=== PATIENT | female | born 1960 | race Caucasian/White ===

== ENCOUNTER 2017-02-19 15:31 | Emergency (ER) | payer OTHER ==
[~2017-02-19] VITALS: Ht 160 cm; Wt 114.8 kg
[~2017-02-19 15:31] MED LIST: BENA10TA16 PO; EXEM25TA PO; HYDR12.5 PO; IBUP-2213 PO; METO50TA69 PO; SIMV20TA6 PO; [UNRECOGNIZED DRUG - CODE] PO
[2017-02-19 15:57] VITALS: BP 144/91
--- NOTE | 2017-02-19 16:11 | NUR ---
PATIENT TAKEN FOR CXR VIA W/C
--- NOTE | 2017-02-19 19:02 | NUR ---
PATIENT PRESENTS TO ED WITH NAUSEA. MINIMAL CHEST DISCOMFORT WITH INSPIRATION ONLY. Hx: RT. BREAST CANCER X8 YRS.,HTN. DENIES SOB,DENIES INJURY . DENIES N/V/D; SKIN IS PINK/WARM/DRY; AAOX4 WITH EVEN AND STEADY GAIT; LUNGS CLEAR BL; HR EVEN AND REGULAR; PT DENIES ANY FEVER, CP, SOB, OR COUGH AT THIS TIME; PATIENT STATES PAIN OF 10/10 AT THIS TIME; VSS; PATIENT POSITIONED FOR COMFORT; HOB ELEVATED; BEDRAILS UP X2; BED DOWN. ER MD MADE AWARE OF PT STATUS.
--- NOTE | 2017-02-19 19:11 | NUR ---
REPORT GIVEN TO DONTE BARBER FOR CONTINUATION OF CARE
[2017-02-19] MEDS ORDERED: KETOROLAC 30 MG/ML VIAL IM ONE (19:30)
[2017-02-19] MEDS ORDERED: DIAZEPAM 5 MG TAB PO ONE (19:30)
--- NOTE | 2017-02-19 19:30 | NUR ---
PTRESTING IN BED, VSS. AWATING FOR RESULTS, NO S/S OF DISTRESS NOTED AT THIS MOMENT.
[2017-02-19] MEDS ORDERED: KETOROLAC 30 MG/ML VIAL IVP ONE (19:40)
[2017-02-19 20:05] VITALS: BP 143/86
--- NOTE | 2017-02-19 20:05 | NUR ---
Patient discharged with v/s stable. Written and verbal after care instructions given and explained. Patient alert, oriented and verbalized understanding of instructions. Ambulatory with steady gait. All questions addressed prior to discharge. ID band removed. Patient advised to follow up with PMD OR RETURN TO ER IF CONDITION WORSENS. Rx of VALIUM, AND NAPROSYN given. Patient educated on indication of medication including possible reaction and side effects. Opportunity to ask questions provided and answered.
== END 2017-02-19 20:15 | disposition home or self-care (01) ==
LOC: MED 15:31
DX: R07.89 Other chest pain (principal); M54.9 Dorsalgia, unspecified; I10 Essential (primary) hypertension; Z85.3 Personal history of malignant neoplasm of breast
CPT/HCPCS: 71020; 81002; 81025; 96374; 99284; J1885

== ENCOUNTER 2017-09-08 11:58 | Emergency (ER) | payer OTHER ==
[~2017-09-08] VITALS: Ht 162.6 cm; Wt 115.7 kg
[~2017-09-08 11:58] MED LIST changes: -BENA10TA16 PO; -HYDR12.5 PO; +METO50TA20 PO; -METO50TA69 PO; -SIMV20TA6 PO; -[UNRECOGNIZED DRUG - CODE] PO
[2017-09-08 12:19] VITALS: BP 139/76
--- NOTE | 2017-09-08 12:24 | NUR ---
PT ALSO C/O LEFT ARM PAIN X2HRS.
--- NOTE | 2017-09-08 12:29 | NUR ---
PATIENT TO ER BED 2
--- NOTE | 2017-09-08 12:30 | NUR ---
57f bib self with c/o left arm and anterior head numbness with dizziness and blurry vision x 1wk. Pt also reports of n/v and "her heart feeling like it is going fast"; Pt also reports of 6/10 constant "sharp" non radiating "all over headache" x 1 wk. Pt is aox4, with steady gait. GCS=15. No acute neuro deficits noted. RR are even and unlabored. Pt positioned to comfort, bed down. NAD. ER md aware of pt status Will continue to monitor.
--- NOTE | 2017-09-08 12:37 | NUR ---
pt to ct via ana accompanied by technical instructor
[2017-09-08] MEDS ORDERED: NACL 0.9% 1,000 ML IV ONE (12:55)
[2017-09-08] MEDS ORDERED: ONDANSETRON 4 MG ODT PO ONE (13:20)
[2017-09-08] MEDS ORDERED: KETOROLAC 60 MG/2 ML VIAL IM ONE (13:20)
--- NOTE | 2017-09-08 13:39 | NUR ---
Pt refused any more IV attempts at this time. Dr. Blandon made aware.
[2017-09-08 14:00] LABS: PROTHROMBIN TIME 10.3 secs (10.8-13.4)
[2017-09-08 14:04] LABS: ANION GAP 9.1 (8-16); CARBON DIOXIDE 28.6 mmol/L (21-32); CREATININE 0.7 mg/dL (0.6-1.3); POTASSIUM 3.7 mmol/L (3.5-5.1)
--- NOTE | 2017-09-08 14:04 | NUR ---
xray by bedside
[2017-09-08 14:10] LABS: ALBUMIN 3.5 g/dL (3.4-5.0); TOTAL BILIRUBIN 0.3 mg/dL (0.0-1.0)
[2017-09-08 16:00] VITALS: BP 158/64
--- NOTE | 2017-09-08 16:00 | NUR ---
Patient discharged with v/s stable. Written and verbal after care instructions given and explained. Patient alert, oriented and verbalized understanding of instructions. Carried with steady gait. All questions addressed prior to discharge. ID band removed. Patient advised to follow up with PMD. Rx of Cipro and Motrin given. Patient educated on indication of medication including possible reaction and side effects. Opportunity to ask questions provided and answered.
== END 2017-09-08 16:00 | disposition home or self-care (01) ==
LOC: MED 11:58
DX: N39.0 Urinary tract infection, site not specified (principal); Z85.3 Personal history of malignant neoplasm of breast; I10 Essential (primary) hypertension; Z90.49 Acquired absence of other specified parts of digestive tract
CPT/HCPCS: 36415; 70450; 71045; 80053; 81002; 81025; 84484; 85610; 85730; 93005; 96372; 99285; J1885; S0119